=== PATIENT | female | born 1965 | race Hispanic/Latino ===

== ENCOUNTER 2021-03-31 20:50 | Emergency (ER) | payer MEDICARE ==
[2021-03-31] MEDS ORDERED: LORazepam 1 MG TAB PO ONE (23:17)
--- NOTE | 2021-03-31 23:32 | Emergency Department Report ---
ED General Adult HPI - General Chief complaint: Abdominal Pain Stated complaint: URINARY RETENTION Time Seen by Provider: 03/31/21 23:16 Source: patient Mode of arrival: Ambulatory Limitations: No Limitations - History of Present Illness Initial comments: Patient 55-year-old female history of paranoid schizophrenia who presents for urinary retention for the past 12 hours. Patient states she was released from [facility] today however has not been able to void since this a.m. Patient patient denies fevers chills no nausea no vomiting. Is a recurrent problem for this patient. Patient denies relieving or exacerbating factors. - Related Data Previous Rx's Medication Instructions Recorded Last Taken Type Tamsulosin [Flomax] 0.4 mg PO QDAY #12 cap 04/01/21 Unknown Rx Allergies Allergy/AdvReac Type Severity Reaction Status Date / Time bacitracin Allergy Rash Verified 03/31/21 21:47 [From Neosporin ([id number])] neomycin Allergy Rash Verified 03/31/21 21:47 [From Neosporin ([id number])] polymyxin B Allergy Rash Verified 03/31/21 21:47 [From Neosporin ([id number])] ED Review of Systems ROS: Stated complaint: URINARY RETENTION Other details as noted in HPI Constitutional: denies: chills, fever Eyes: denies: eye pain, eye discharge, vision change ENT: denies: ear pain, throat pain Respiratory: denies: cough, shortness of breath, wheezing Cardiovascular: denies: chest pain, palpitations Endocrine: no symptoms reported Gastrointestinal: abdominal pain. denies: nausea, vomiting, diarrhea, constipation, melena Genitourinary: urgency, dysuria, other (Urinary retention). denies: frequency, hematuria, discharge Musculoskeletal: denies: back pain, joint swelling, arthralgia Skin: as per HPI Neurological: denies: headache, weakness, paresthesias Psychiatric: denies: anxiety, depression Hematological/Lymphatic: as per HPI ED Past Medical Hx - Past Medical History Hx Psychiatric Treatment: Yes (anxiety) - Surgical History Past Surgical History?: No Additional Surgical History: abd surgery - Medications Home Medications: Home Medications Medication Instructions Recorded Confirmed Last Taken Type Tamsulosin [Flomax] 0.4 mg PO QDAY #12 cap 04/01/21 Unknown Rx ED Physical Exam - General Limitations: No Limitations General appearance: alert, in no apparent distress - Head Head exam: Present: atraumatic, normocephalic - Eye Eye exam: Present: normal appearance, EOMI Pupils: Present: normal accommodation - ENT ENT exam: Present: mucous membranes moist - Neck Neck exam: Present: normal inspection, full ROM. Absent: tenderness - Respiratory Respiratory exam: Present: normal lung sounds bilaterally. Absent: respiratory distress, wheezes, stridor, chest wall tenderness - Cardiovascular Cardiovascular Exam: Present: regular rate, normal rhythm, normal heart sounds. Absent: systolic murmur, diastolic murmur, rubs, gallop - GI/Abdominal GI/Abdominal exam: Present: soft, normal bowel sounds. Absent: distended, tenderness, guarding, rebound, rigid, bruit, hernia - Rectal Rectal exam: Present: deferred - Extremities Exam Extremities exam: Present: normal inspection, full ROM. Absent: tenderness - Back Exam Back exam: Present: normal inspection, full ROM. Absent: CVA tenderness (R), CVA tenderness (L) - Neurological Exam Neurological exam: Present: alert, oriented X3, CN II-XII intact, normal gait - Expanded Neurological Exam Expanded Patient oriented to: Present: person, place, time Speech: Present: fluid speech Best Eye Response (Marisela): (4) open spontaneously Best Motor Response ([place]): (6) obeys commands Best Verbal Response ([place]): (5) oriented Marisela Total: 15 - Psychiatric Psychiatric exam: Present: anxious. Absent: agitated, homicidal ideation, suicidal ideation - Skin Skin exam: Present: warm, dry, intact, normal color. Absent: rash ED Medical Decision Making - EKG Data Interpretation: normal EKG - Radiology Data Radiology results: pending, report reviewed, image reviewed - Medical Decision Making UA normal no leukocytes no nitrates., Moreira placement yields 1 L of urine, Plan follow-up with tomorrow and the next few days. Return to the Critical care attestation.: If time is entered above; I have spent that time in minutes in the direct care of this critically ill patient, excluding procedure time. ED Disposition Clinical Impression: Urinary retention Disposition: HOME / SELF CARE / HOMELESS Is pt being admited?: No Does the pt Need Aspirin: No Condition: Stable Instructions: Abdominal Pain (ED), Acute Urinary Retention, Female Additional Instructions: Follow-up with urologist in 2 to 3 days. Prescriptions: Tamsulosin [Flomax] 0.4 mg PO QDAY #12 cap Referrals: UZIEL DUKE MD [Staff Physician] - 3-5 Days Forms: Work/School Release Form(ED) Time of Disposition: 04:12
[2021-04-01 01:19] LABS: Bilirubin,Urine NEG (Negative); Blood,Urine NEG (Negative); Color,Urine Yellow (Yellow); Protein,Urine <15 mg/dL mg/dL (Negative); RBC,Urine < 1.0 /HPF (0.0-6.0); Urobilinogen,Urine < 2.0 mg/dL (<2.0)
[2021-04-01] MEDS ORDERED: ACETAMINOPHEN 500 MG TAB PO ONE (05:10)
[2021-04-01 07:34] VITALS: BP 154/92
== END 2021-04-01 05:23 | disposition home or self-care (01) ==
LOC: ED 20:50
DX: R33.9 Retention of urine, unspecified (principal); Z88.1 Allergy status to other antibiotic agents; F41.9 Anxiety disorder, unspecified
CPT/HCPCS: 51702; 81001; 87086; 99283